=== PATIENT | female | born 1995 | race Caucasian/White ===

== ENCOUNTER 2016-10-09 17:32 | Emergency (ER) | payer BC ==
[2016-10-09] MEDS ORDERED: NS 0.9% 1000 ML* 1,000 ML IV ONE (20:01)
[2016-10-09] MEDS ORDERED: Ondansetron INJ* 2 MG/ML VIAL IV ONE (20:01)
[2016-10-09] MEDS ORDERED: Morphine INJ* 2 MG/ML 1 ML SYRINGE IV ONE (20:01)
--- NOTE | 2016-10-09 20:25 | ED ---
I, Oh,Darnell, scribed for Rogerio Farias MD on 10/09/16 at 2004 . 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 Pt also reports n/v since 2 days ago, intermittent fever , and fatigue. Temperature at triage was 98.7 F. She was evaluated at Urgent Care and had negative strep. Pt initially dismissed the abd discomfort as menstrual pain, but decided to come to ED this evening when abd pain persisted after her menstrual cycle was over. PMHx is significant for mono earlier this winter. - History of Current Complaint Chief Complaint: EDAbdPain Stated Complaint: ABD PAIN/FEVER Time Seen by Provider: 10/09/16 19:57 Hx Obtained From: Patient ?: No Onset/Duration: Gradual Onset, Still Present Pain Intensity: 9 Pain Scale Used: 0-10 Numeric Location: Discrete At: RLQ Radiates: No Character: Dull Aggravating Factor(s): Nothing Alleviating Factor(s): Nothing Associated Signs and Symptoms: Positive: Fever - intermittent, Nausea, Vomiting Allergies/Adverse Reactions: Allergies Allergy/AdvReac Type Severity Reaction Status Date / Time No Known Allergies Allergy Verified 06/05/15 23:09 PMH/Surg Hx/FS Hx/Imm Hx Infectious Disease History: Yes - mono Infectious Disease History: Denies: Traveled Outside the [place] in Last 30 Days - Family History Known Family History: Positive: Other - Mother -- ovarian cyst - Social History Occupation: Student Alcohol Use: Occasionally Hx Substance Use: No Substance Use Type: Reports: None Hx Tobacco Use: No Smoking Status (MU): Never Smoked Tobacco Review of Systems Positive: Fever - intermittent, Fatigue Positive: Abdominal Pain, Vomiting, Nausea All Other Systems Reviewed And Are Negative: Yes Physical Exam Triage Information Reviewed: Yes Vital Signs On Initial Exam: Initial Vitals Temp Pulse Resp BP Pulse Ox 98.7 F 88 14 125/72 100 10/09/16 17:40 10/09/16 17:40 10/09/16 17:40 10/09/16 17:40 10/09/16 17:40 Vital Signs Reviewed: Yes Appearance: Positive: Well-Appearing, No Pain Distress Skin: Positive: Warm Head/Face: Positive: Normal Head/Face Inspection ENT: Positive: Hearing grossly normal, Pharyngeal erythema. Negative: Tonsillar swelling, Tonsillar exudate Neck: Positive: Supple Respiratory/Lung Sounds: Positive: Clear to Auscultation, Breath Sounds Present Cardiovascular: Positive: RRR Abdomen Description: Positive: No Organomegaly, Soft, Other: - mild rt lower abd tenderness Bowel Sounds: Positive: Present Musculoskeletal: Positive: Strength/ROM Intact Neurological: Positive: Sensory/Motor Intact, Alert, Oriented to Person Place, Time Psychiatric: Positive: Affect/Mood Appropriate Diagnostics - Vital Signs Vital Signs Temp Pulse Resp BP Pulse Ox 10/09/16 19:49 98.7 F 88 14 125/72 100 10/09/16 17:40 98.7 F 88 14 125/72 100 - Laboratory Result Diagrams: 10/09/16 20:20 10/09/16 20:20 Lab Statement: Any lab studies that have been ordered have been reviewed, and results considered in the medical decision making process. - CT Ab/P CT Interpretation: No Acute Changes - NO ACUTE CT PATHOLOGY OF THE VISUALIZED ABDOMEN OR PELVIS CT Interpretation Completed By: Radiologist Re-Evaluation - Re-Evaluation First Eval Change: Improved - results d/w pt, feels better Abdominal Pain Fem Course/Dx - Diagnoses Provider Diagnoses: Abdominal pain Discharge - Discharge Plan Condition: Stable Disposition: HOME Patient Education Materials: Abdominal Pain (ED) [facility] - 2 Days The documentation as recorded by the Tan maldonado Soohyun accurately reflects the service I personally performed and the decisions made by , Rogerio Farias MD.
[2016-10-09 20:27] LABS: Hematocrit 40 % (35-47); Hemoglobin 13.1 g/dl (12.0-16.0); Mean Corpuscular HGB Conc 33 g/dl (31-36); Mean Corpuscular Hemoglobin 28 pg (27-31); Mean Corpuscular Volume 86 fL (80-97); Mean Platelet Volume 9 um3 (7.4-10.4); Red Blood Count 4.62 10^6/ul (4.0-5.4); Red Cell Distribution Width 13 % (10.5-15); White Blood Count 7.7 10^3/ul (3.5-10.8)
[2016-10-09 20:32] LABS: Urine Bacteria Absent (Absent); Urine Bilirubin Negative (Negative); Urine Glucose Negative (Negative); Urine Nitrite Negative (Negative)
[2016-10-09 20:42] LABS: Manual Entry Verification ROB0080; Mono Internal Control QC Line Present
[2016-10-09 20:44] LABS: ALT 10 U/L (7-52); AST 16 U/L (13-39); Albumin 4.5 g/dL (3.2-5.2); Alkaline Phosphatase 53 U/L (34-104); Anion Gap 7 mmol/L (2-11); BUN/Creatinine Ratio 11.1 (8-20); Blood Urea Nitrogen 9 mg/dL (6-24); C Reactive Protein 76.44 mg/L (< 5.00); CO2 Carbon Dioxide 26 mmol/L (22-32); Calcium 9.3 mg/dL (8.6-10.3); Chloride 102 mmol/L (101-111); EGFR African American 117.1 (>60); EGFR Non-African American 91.1 (>60); Globulin 3.3 g/dL (2-4); Glucose 78 mg/dL (70-100); Lipase 27 U/L (11.0-82.0); Potassium 3.7 mmol/L (3.5-5.0); Sodium 135 mmol/L (133-145); Total Protein 7.8 g/dL (6.4-8.9)
[2016-10-09] MEDS ORDERED: Iohexol 300* (CONTRAST) 10 ML SDV IV ONE (21:03)
--- NOTE | 2016-10-09 22:30 | RAD ---
CLINICAL HISTORY: Right lower quadrant pain COMPARISON: None TECHNIQUE: Multiple contiguous axial CT scans were obtained of the abdomen and pelvis after the administration of intravenous contrast. Coronal and sagittal multiplanar reformations are submitted for review. Oral contrast was administered. Delayed images were obtained through the abdomen and pelvis. FINDINGS: LUNG BASES: The lung bases are clear. LIVER: The liver is normal in shape, size, contour, and attenuation. BILE DUCTS: There is no intrahepatic or extrahepatic biliary dilatation. GALLBLADDER: The gallbladder is normal, without pericholecystic inflammatory change. PANCREAS: The pancreas is normal, without mass or ductal dilatation. SPLEEN: Normal in size and appearance. UPPER GI TRACT: Evaluation of the gastrointestinal tract is limited by incomplete gastric distention. The upper GI tract is unremarkable. SMALL BOWEL AND MESENTERY: The small bowel is normal in contour, course, and caliber. There is no obstruction or dilatation. COLON: The colon is normal in contour, course, caliber. There is no pericolonic inflammatory change. There is a tubular, vermiform, hollow viscus that is blind ending, and originates from the cecum, consistent with a normal appendix. There is no periappendiceal inflammatory change. This is best seen on coronal images 31 through 46 ADRENALS: Normal bilaterally. KIDNEYS: The kidneys are normal in shape, size, contour, and axis. There is no hydronephrosis or nephrolithiasis. BLADDER: The bladder is smooth in contour. PELVIC ORGANS: The uterus and adnexa are grossly normal for technique. AORTA: The aorta is normal. IVC: Unremarkable LYMPH NODES: There is no lymphadenopathy by size criteria. ABDOMINAL WALL: There is no evidence for abdominal wall hernia. BONES AND SOFT TISSUES: Unremarkable OTHER: None IMPRESSION: NO ACUTE CT PATHOLOGY OF THE VISUALIZED ABDOMEN OR PELVIS
[2016-10-09 23:08] VITALS: BP 105/72
== END 2016-10-09 23:07 | disposition home or self-care (01) ==
LOC: ED 17:32
DX: R10.31 Right lower quadrant pain (principal); R50.9 Fever, unspecified; R11.2 Nausea with vomiting, unspecified; R53.83 Other fatigue
CPT/HCPCS: 36415; 74177; 80053; 81003; 81015; 83605; 83690; 83735; 84702; 85025; 86140; 86308; 96374; 96375; 99283; J2270; J2405; Q9967